=== PATIENT | male | born 1945 | race Caucasian/White ===

== ENCOUNTER 2018-07-29 11:25 | Outpatient (REF) | payer MEDICARE, MEDICAID, SELFPAY ==
[2018-07-29 11:45] LABS: Bilirubin Negative (Negative); Blood Negative (Negative); Clarity Clear; Glucose Negative (Negative); Ketones 15 mg/dL (Negative); Leukocyte Esterase Negative (Negative); Nitrite Negative (Negative); Specific Gravity >= 1.030 (1.005-1.025); Urobilinogen 0.2 EU/dL (Up TO 0.2); pH 5.5 (5-8)
== END 2018-07-29 11:26 ==
LOC: LBN 11:25
PROVIDERS: PCP Family Medicine; Visit Provider Family Medicine
DX: N39.0 Urinary tract infection, site not specified (principal); R26.9 Unspecified abnormalities of gait and mobility; G20 Parkinson's disease
CPT/HCPCS: 81003

== ENCOUNTER → 2018-08-06 08:14 | Outpatient (BNVA) | payer MEDICARE, MEDICAID, SELFPAY | PROVIDERS: PCP Family Medicine; Visit Provider Psychiatry & Neurology Neurology | DX: G20 Parkinson's disease (principal); R29.6 Repeated falls | CPT/HCPCS: 99214 ==

== ENCOUNTER → 2018-09-09 09:13 | Outpatient (BNVA) | payer MEDICARE, MEDICAID, SELFPAY | PROVIDERS: Visit Provider Psychiatry & Neurology Neurology | DX: G20 Parkinson's disease (principal); R29.6 Repeated falls | CPT/HCPCS: 99214 ==

== ENCOUNTER 2019-01-08 11:47 | Outpatient (REF) | payer MEDICARE, MEDICAID, SELFPAY ==
[2019-01-08 12:55] LABS: Abs Immature Grans 0.01 k/cumm (0.0-0.09); HCT 38.3 % (40.0-50.0); HGB 12.7 g/dL (13.5-17.5); Mean Corp. HGB Concentration 33.2 g/dL (32.0-36.0); Mean Corpuscular Volume 93.4 fL (80-95); Mean Platelet Volume 11.8 fL (8.0-11.0); RBC Distribution Width 12.9 % (11.8-14.1); White Blood Cell Count 2.72 k/cumm (4.4-10.8)
[2019-01-08 13:35] LABS: Absolute Eosinophil Count 0.08 k/cumm (0.0-0.7); Absolute Lymphocyte Count 0.84 k/cumm (1.2-3.4); Absolute Monocyte Count 0.63 k/cumm (0.11-0.7); Absolute Neutrophil Count 1.14 k/cumm (1.2-6.7); Atypical Lymphocytes % 3
[2019-01-08 13:36] LABS: Diff Comment Manual Differential; Platelet Count 116 x1000/uL (130-400); RBC Morphology Normal
[2019-01-08 14:02] LABS: ALT 15 U/L (12-78); AST 27 U/L (15-37); Albumin 3.1 g/dL (3.4-5.0); Alkaline Phosphatase 69 U/L (46-116); Anion Gap 7.8 mmol/L (3-11); BUN 22 mg/dL (7-18); Bilirubin, Total 0.3 mg/dL (0.2-1.0); CO2 28.2 mmol/L (21.0-32.0); CREATININE 1.26 mg/dL (0.70-1.30); Chloride 108 mmol/L (98-107); Estimated GFR 56.26 (mL/min/1.73m2); Glucose 92 mg/dL (70-100); Sodium 144 mmol/L (136-145); TSH (W/Ref FT4) 0.68 uIU/mL (0.358-3.74); Total Protein 5.6 g/dL (6.4-8.2); Vitamin B12 436 pg/mL (193-986)
== END 2019-01-08 12:07 ==
LOC: LBN 11:47
PROVIDERS: PCP Family Medicine; Visit Provider Family Medicine
DX: I10 Essential (primary) hypertension (principal); R53.83 Other fatigue; R63.5 Abnormal weight gain
CPT/HCPCS: 80053; 82607; 84443; 85025

== ENCOUNTER 2019-02-15 11:42 | Emergency (ER) | payer MEDICARE, MEDICAID, SELFPAY ==
[2019-02-15] VITALS (27 sets, daily range): BP systolic 132–168; BP diastolic 62–82; PULSE 65–78; RESP 9–26; TEMP 36.3; O2SAT 95–98
--- NOTE | 2019-02-15 12:05 | ED.GENADUL_ITS ---
Discharge Plan Disposition Patient Disposition: [facility] Condition: Stable Discharge Details Chief Complaint: Trauma Clinical Impression: Fall, Hip pain Reason For Visit: STEVE Primary Care Provider: Rich Solis ED Provider: Leticia Mae Home Meds and New Rx's Prescriptions: Continued carbidopa-levodopa 25-100 mg tablet 2 tab PO .4XDAY RF: 0 carbidopa-levodopa 50-200 mg tablet extended release 1 tab PO QID RF: 0 trazodone 50 mg tablet 50 mg PO DIRECTED Qty: 1 RF: 0 sertraline 50 mg tablet 75 mg PO DAILY RF: 0 amantadine HCl 100 mg capsule 100 mg PO BID Qty: 60 RF: 0 multivitamin [Daily Multiple] 1 EACH tablet 1 ea PO DAILY RF: 0 cholecalciferol (vitamin D3) 10,000 UNIT capsule 50,000 unit PO Friday RF: 0 polyvinyl alcohol [Artificial Tears (polyvin alc)] 15 ML drops 1 drp OU Q1H PRN PRNRF: 0 quetiapine 25 mg Tablet 12.5 mg PO .QEVE RF: 0 Discharge Instructions Instructions: Contusion in Adults (ED), Hip Pain (ED) Additional Instructions: Please return to the emergency department if you develop any new or worsening symptoms or if you become otherwise concerned. It is extremely important that you make an appointment to be seen as soon as possible in follow-up this visit by your primary care doctor. Referrals: Rich Solis [Primary Care Provider] - Discharge Data Discharge Date/Time-TO BE ENTERED AT DEPARTURE: 02/15/19 15:53 Medical Decision Making Evelio Angel is a 73-year-old male with a history of Parkinson's disease, frequent falls, anxiety who presented to the emergency department with bilateral hip pain after standing from his wheelchair and falling forward, hitting his head. On exam patient has garbled speech, which is confirmed is at baseline by a caregiver present in the exam room in the nose and well. His neurologic exam is nonfocal. He is tender in both hips, worse on the left. Both lower extremities are neurovascularly intact. There is some difficulty with communica tion due to to garbled speech, underlying mental status that his caregiver reports as at baseline. Concern for possible intracranial, C-spine trauma, as well as trauma to the hips. Exam/history is not consistent with non-mechanical fall, sepsis, other acute emergent life-threatening process. Plan for CT head, C-spine, x-rays bilateral hips. Imaging nondiagnostic. I had a lengthy discussion with the patient and his caregiver regarding return to emergency department precautions. Patient was discharged with clear plan for outpatient follow-up. Caregiver and patient verbalized understanding the plan and are amenable. All questions were answered. Medical Records Medical records reviewed: Yes I reviewed the patient's medical records. Imaging Data Radiologic Study: Attestation: I personally reviewed and interpreted this imaging study as follows: Radiologist's impression: PELVIS AND BILATERAL HIPS: Multiple views. No acute fracture or dislocation is identified. The soft tissues are unremarkable. IMPRESSION: No acute abnormality. CT BRAIN: Noncontrast examination was performed. Comparison 03/17/11. The ventricles and sulci are consistent with the patient's age. There are areas of decreased attenuation in the white matter consistent with small vessel ischemic disease. No intracranial hemorrhage, infarct, acute midline shift or mass effect is identified. The ventricles are intact. The basilar cisterns are patent. The visualized paranasal sinuses are clear. The mastoid air cells are well pneumatized. The calvarium is intact. IMPRESSION: No acute intracranial process. CT SCAN OF THE CERVICAL SPINE: Multiple contiguous axial images of the cervical spine were obtained. Sagittal and coronal reformatted images were evaluated on the Siemens workstation. The odontoid is intact. The lateral masses are well aligned. There is normal alignment of the cervical spine. No acute fractures or subluxations are seen. Mild to moderate degenerative changes are present in the cervical spine. The soft tissues are unremarkable. The lung apices are clear. IMPRESSION: No acute fracture or subluxation in the cervical spine. HPI General Mode of arrival: EMS . Date/Time Provider Initiated Documentation: 02/15/19 12:04 . Limitations to Documentation: no limitations . Information obtained by: patient, RN notes reviewed and old records reviewed . HPI Narrative: Evelio Angel is a 73-year-old man with a history of Parkinson's disease, frequent falls, and anxiety who presents emergency department with fall. Per EMS, correction report, and Pt, patient was seated in his wheelchair when he went to stand and fell forward hitting his head on a table. Patient reports this happens frequently as does correction. Patient reports that he has had pain in both hips since the fall. He did not lose consciousness. He has had no vomiting. Patient reports mild headache along with bilateral hip pain, worse on the left. He denies any other pain. He d enies having any symptoms prior to the fall, per nursing report he was previously in his usual state of health. Has been eating and drinking as usual. Related Data Home Medications Medication Instructions Recorded Confirmed cholecalciferol (vitamin D3) 50,000 unit PO Friday08/08/15 02/15/19 multivitamin [Daily Multiple] 1 ea PO DAILY 08/08/15 02/15/19 polyvinyl alcohol [Artificial 1 drp OU Q1H PRN PRN 04/20/17 02/15/19 Tears (polyvin alc)] amantadine HCl 100 mg capsule 100 mg PO BID #60 cap 08/06/18 02/15/19 sertraline 50 mg tablet 75 mg PO DAILY tab 08/06/18 02/15/19 carbidopa 25 mg-levodopa 100 mg 2 tab PO .4XDAY tab 09/09/18 02/15/19 tablet carbidopa ER 50 mg-levodopa 200 mg 1 tab PO QID tab 09/09/18 02/15/19 tablet,extended release trazodone 50 mg tablet 50 mg PO DIRECTED #1 tab 09/09/18 02/15/19 quetiapine 12.5 mg PO .QEVE 02/15/19 02/15/19 Previous Rx's Medication Instructions Recorded amantadine HCl 100 mg capsule 100 mg PO BID #60 cap 08/06/18 trazodone 50 mg tablet 50 mg PO DIRECTED #1 tab 09/09/18 Allergies Allergy/AdvReac Type Severity Reaction Status Date / Time Penicillins Allergy Mild can't Unverified 02/15/19 12:18 remember Sulfa (Sulfonamide Allergy Unverified 02/15/19 12:18 Antibiotics) General Stated Complaint: Trauma MARIBELL: 3 Review of Systems Review of Systems Constitutional: denies fevers Eyes: denies eye pain ENT: denies facial pain, dental pain, sore throat Cardiovascular: denies chest pain, edema Respiratory: denies SOB, cough GI: denies abdominal pain, vomiting, diarrhea : denies flank pain MSK: denies back pain, neck pain, myalgias, reports bilateral hip pain Skin: denies rash Neuro: denies new numbness, weakness, reports mild headache [facility] Medical History Colitis (Chronic) Parkinsons disease (Chronic 06/10/15) Falls frequently (Chronic 06/10/15) Anxiety (Chronic) Depression (Chronic) Arthritis (Chronic) Social History Smoking/Tobacco Use Status: Never Drug use: Never Substance use type: does not use Do you feel safe in your relationship?: Yes Additional Social history: 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 He resides at the [facility]. Friend Rosa is a his DPOA and finance advisor. No smoking, ETOH, or illicit drug use. Exam Narrative Exam Narrative: Constitutional: well and [id number], pleasant, garbled speech that is at baseline HENT: head atraumatic/normocephalic/normal inspection, mucous membranes moist Eyes: conjunctiva normal, sclera normal, pupils 3mm b/l Neck: no stridor, normal ROM, trachea midline, no C-spine tenderness palpation Chest: normal inspection Resp: normal work of breathing, LCTAB Cardio: normal rate, normal rhythm, no murmur appreciated GI: abdomen soft, non-tender, non-distended Back: normal inspection, no rash Skin: warm, dry, normal color, no rash Neuro: alert, not altered, grossly non-focal, normal tone Ext: no edema, bilateral hips tender to anterior and lateral palpation, able to range right hip normally, pain with ranging left hip. DP pulses intact and symmetric. No posterior calf tenderness. No tenderness bilateral thighs, knees, lower legs, ankles. No skin signs of trauma to the lower extremities Psych: normal mood, normal affect Course Vital Signs Temperature 36.3 C L 02/15/19 11:53 Pulse 65 02/15/19 11:53 Blood Pressure 136/75 02/15/19 11:53 Pulse Oximetry 95 02/15/19 11:53 Temperature 36.3 C L 02/15/19 11:53 Pulse 65 02/15/19 11:53 Blood Pressure 136/75 02/15/19 11:53 Blood Pressure Position Supine 02/15/19 11:53 Pulse Oximetry 95 02/15/19 11:53 Oxygen Delivery Method Room Air 02/15/19 11:53 Oxygen Flow Rate 0 02/15/19 11:53
--- NOTE | 2019-02-15 12:38 | DI.CT_ITS ---
SYMPTOMS/DIAGNOSIS: TRAUMA, BASELINE AMS CT BRAIN: Noncontrast examination was performed. Comparison 03/17/11. The ventricles and sulci are consistent with the patient's age. There are areas of decreased attenuation in the white matter consistent with small vessel ischemic disease. No intracranial hemorrhage, infarct, acute midline shift or mass effect is identified. The ventricles are intact. The basilar cisterns are patent. The visualized paranasal sinuses are clear. The mastoid air cells are well pneumatized. The calvarium is intact. IMPRESSION: No acute intracranial process. CT SCAN OF THE CERVICAL SPINE: Multiple contiguous axial images of the cervical spine were obtained. Sagittal and coronal reformatted images were evaluated on the Siemens workstation. The odontoid is intact. The lateral masses are well aligned. There is normal alignment of the cervical spine. No acute fractures or subluxations are seen. Mild to moderate degenerative changes are present in the cervical spine. The soft tissues are unremarkable. The lung apices are clear. IMPRESSION: No acute fracture or subluxation in the cervical spine. The findings were discussed with the emergency department on the date of the examination.
--- NOTE | 2019-02-15 14:01 | DI.RAD_ITS ---
SYMPTOMS/DIAGNOSIS: TRAUMA, BILATERAL HIP PAIN PELVIS AND BILATERAL HIPS: Multiple views. No acute fracture or dislocation is identified. The soft tissues are unremarkable. IMPRESSION: No acute abnormality.
== END 2019-02-15 15:53 | disposition designated cancer center or children's hospital (05) ==
PROVIDERS: Emergency Provider Student in an Organized Health Care Education/Training Program; PCP Family Medicine
DX: S09.90XA Unspecified injury of head, initial encounter (principal); M25.551 Pain in right hip; M25.552 Pain in left hip; W05.0XXA Fall from non-moving wheelchair, initial encounter; R29.6 Repeated falls; G20 Parkinson's disease
CPT/HCPCS: 73521; 99284; 70450; 72125; 99282

== ENCOUNTER 2019-06-05 11:34 | Emergency (ER) | payer MEDICARE, MEDICAID, SELFPAY ==
[2019-06-05] VITALS (7 sets, daily range): BP systolic 98; BP diastolic 65; PULSE 16–73; RESP 9–21; TEMP 36.6; O2SAT 98–99
--- NOTE | 2019-06-05 11:42 | W.ED.GENAD ---
Discharge Plan Disposition Patient Disposition: SNF (LEVEL 1) [facility] Condition: Serious Discharge Details Chief Complaint: Trauma Clinical Impression: Face lacerations, Subdural bleeding Primary Care Provider: Rich Solis ED Provider: Gwendolyn Jones [place] Meds and New Rx's Prescriptions: Continued carbidopa-levodopa 25-100 mg tablet 2 tab PO .4XDAY RF: 0 carbidopa-levodopa 50-200 mg tablet extended release 1 tab PO QID RF: 0 trazodone 50 mg tablet 50 mg PO DIRECTED Qty: 1 RF: 0 sertraline 50 mg tablet 75 mg PO DAILY RF: 0 amantadine HCl 100 mg capsule 100 mg PO BID Qty: 60 RF: 0 multivitamin [Daily Multiple] 1 EACH tablet 1 ea PO DAILY RF: 0 cholecalciferol (vitamin D3) 10,000 UNIT capsule 50,000 unit PO Friday RF: 0 polyvinyl alcohol [Artificial Tears (polyvin alc)] 15 ML drops 1 drp OU Q1H PRN PRNRF: 0 quetiapine 25 mg Tablet 12.5 mg PO .QEVE RF: 0 Discharge Instructions Instructions: Subdural Hematoma (ED), Facial Laceration (ED) Additional Instructions: Evelio has 3 areas of bleeding in his brain noted today on CT likely from his fall this morning. This is a serious issue, following patients wishes with COLST form, will not pursue further intervention. May return at any point for further care. Laceration closed with adhesive. Monitor for signs of infection including redness, warmth, drainage, increased pain, fevers/chills. Please see primary care physician as soon as possible. Referrals: Rich Solis [Primary Care Provider] - Discharge Data Discharge Date/Time-TO BE ENTERED AT DEPARTURE: 06/05/19 14:42 Medical Decision Making Patient is a 73-year-old male, brought in via EMS, after falling out of bed. Patient resides at the [facility]. Unwitnessed fall. Has 3cm laceration lateral to left eyebrow. Patient is reported to have limited communicative skills at baseline, unchanged from baseline per nursing report. Unable to obtain history from the patient. Plan to image the patient's head and clean and repair the wound. Patient is not anticoagulated. Contacted by radiologist who advised that there is 3 very small bleeds including a small subdural. They do not know any edema or midline shift. I did review the patient's pulse form and the patient is a DNR expressing wishes to not be transferred to other facilities. Will attempt to reach the patient's DPOA to discuss these findings and discuss patients wishes for continued care. Plan to treat laceration with adhesive. Unable to reach DPOA at number listed, called [facility] with hopes they are able to contact them. Was able to speak with patients DPOA, Rosey, who advises that his wishes would be to have no further intervention Was able to speak wi9th Dr. 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 At this time, we will follow the patients wishes, treat wound and send back to his residence. Patient is now more communicitive. We discussed bleeds although I have reservations about how much of this he understood. He is able to say that he wants to go home. Procedure note: Wound copiously irrigated, explored to base in bloodless field. No FB or debris noted. No deep structures involved. The tissue is easily mobile and good candidate for adhesive closure, particularly with the patients mental status. Thin layer of adhesive applied. Maria D tolerated this well. Transferred patient back to [facility]. They will seek care if signs of infection arise. He will be evaluated this week by Dr. Blilings. HPI General Mode of arrival: EMS. Date/Time Provider Initiated Documentation: 06/05/19 11:42. Limitations to Documentation: altered mental status. Information obtained by: EMS and RN notes reviewed. History of Present Illness 73 year old M presents to the emergency department with the chief complaint of head trauma, laceration lateral to left eyebrow, described as mild (does not appear to be in any pain, did not express this to EMS), and is localized to the head. Patient started experiencing this minute(s) Patient notes no other symptoms. (unable to obtain secondary to patients baseline mentation). Patient did receive the following treatments prior to arrival, none Related Data Home Medications Medication Instructions Recorded Confirmed cholecalciferol (vitamin D3) 50,000 unit PO Friday08/08/15 02/15/19 multivitamin [Daily Multiple] 1 ea PO DAILY 08/08/15 02/15/19 polyvinyl alcohol [Artificial 1 drp OU Q1H PRN PRN 04/20/17 02/15/19 Tears (polyvin alc)] amantadine HCl 100 mg capsule 100 mg PO BID #60 cap 08/06/18 02/15/19 sertraline 50 mg tablet 75 mg PO DAILY tab 08/06/18 02/15/19 carbidopa 25 mg-levodopa 100 mg 2 tab PO .4XDAY tab 09/09/18 02/15/19 tablet carbidopa ER 50 mg-levodopa 200 mg 1 tab PO QID tab 09/09/18 02/15/19 tablet,extended release trazodone 50 mg tablet 50 mg PO DIRECTED #1 tab 09/09/18 02/15/19 quetiapine 12.5 mg PO .QEVE 02/15/19 02/15/19 Previous Rx's Medication Instructions Recorded amantadine HCl 100 mg capsule 100 mg PO BID #60 cap 08/06/18 trazodone 50 mg tablet 50 mg PO DIRECTED #1 tab 09/09/18 Allergies Allergy/AdvReac Type Severity Reaction Status Date / Time Penicillins Allergy Mild can't Unverified 02/15/19 12:18 remember Sulfa (Sulfonamide Allergy Unverified 02/15/19 12:18 Antibiotics) General MARIBELL: 3 Review of Systems Review of Systems Unobtainable due to mental condition (dementia, at baseline per shelter) [facility] Medical History Colitis (Chronic) Parkinsons disease (Chronic 06/10/15) Falls frequently (Chronic 06/10/15) Anxiety (Chronic) Depression (Chronic) Arthritis (Chronic) Surgical History History of Surgical Procedure (Chronic) Social History Smoking/Tobacco Use Status: Never Drug use: Never Substance use type: does not use Do you feel safe in your relationship?: Yes Additional Social history: 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 He resides at the [facility]. Friend Rosa is a his DPOA and manager agriculture. No smoking, ETOH, or illicit drug use. Exam Const General: cooperative, healthy appearing, comfortable, no acute distress, well developed and well groomed Nutritional Appearance: average body habitus and well nourished Orientation: alert, awake and oriented x3 [facility] Head: normal to inspection, no palpable skull fracture, normocephalic and atraumatic Ears: hearing grossly normal bilaterally, external ears normal and TM's normal bilaterally General nose exam: external nose normal Face and sinus: abnormal facial exam (laceration lateral to left eyebrow) Face images: 1. 3cm laceration, deep structures intact, no active bleeding Mouth: oral mucosae normal, lip normal and tongue normal Throat: posterior oropharynx normal Eyes General: appearance normal, both eyes and all related structures Visual Godinez: normal visual godinez by confrontation Alignment and Position: alignment normal Periorbital: periorbital findings normal Eyelids: eyelids normal Conjunctivae: conjunctivae normal Pupils: PERRL EOM: EOM intact bilaterally Neck Neck: normal visual inspection, full ROM, no lymphadenopathy, no meningeal signs, trachea midline and supple Chest Chest: normal inspection of the chest, normal palpation of entire chest wall, no crepitus and no localized rib tenderness Resp Effort & Inspection: normal respiratory effort, able to speak in complete sentences and no respiratory distress Auscultation: clear to auscultation bilaterally, no rales, no rhonchi and no wheezes Cardio Rate: regular rate Rhythm: regular rhythm Heart Sounds: S1 normal and S2 normal GI Inspection: normal to inspection, no abdominal wall ecchymosis, no edema and non-distended Palpation: soft, no hepatosplenomegaly, not firm, no guarding, no pulsatile masses, not rigid and nontender Auscultation: normal bowel sounds Back/Spine/Pelvis Back: no CVA tenderness Cervical Spine: normal cervical lordosis and cervical ROM normal Thoracic/Lumbar Spine: thoracic and lumbar spine normal to inspection, thoraco-lumbar ROM normal, No thoraco-lumbar ROM limited, No thoraco-lumbar spasm and No thoracic spinal tenderness Pelvis: no pain with anterior-posterior compression and no pain with lateral compression Skin Trauma: laceration (as above) Neuro General: alert, awake, not oriented x3, tone normal and moves all extremities Cranial Nerves: CN's II-XI intact bilaterally Motor: muscle tone normal throughout and strength 5/5 throughout Extrem General: normal to inspection, full ROM, normal capillary refill, no pedal edema and no calf tenderness Psych Appearance: grossly normal and well kempt Speech and Movement: mute
--- NOTE | 2019-06-05 12:12 | NUR.NOTE ---
Nursing Note: pt in CT scan
--- NOTE | 2019-06-05 12:24 | DI.CT_ITS ---
SYMPTOM/DIAGNOSIS: UNWITNESSED FALL CERVICAL SPINE CT: 06/05 CT examination of the cervical spine was performed utilizing multi-slice acquisition, multiplanar reconstruction. There is torticollis to the right. There are marked degenerative changes throughout the cervical spine. There is no evidence of acute fracture or facet dislocation. No cervical mass or adenopathy seen. Visualized lung apices are clear. Tracheolaryngeal structures appear intact. CONCLUSION: No evidence of acute cervical fracture. CRANIAL CT : 06/[address] was performed. No calvarial fracture identified. The orbital and temporal bone structures appear intact and visualized paranasal sinuses are well aerated. There is marked generalized cerebral atrophy. There is a small focal area of subarachnoid hemorrhage vs medial left frontal lobe hemorrhagic contusion. Tiny subdural hematoma noted in the posterior falx. Question tiny hemorrhage in midline falx or wall of right lateral ventricle. No midline shift. No additional intracranial injury seen. CONCLUSION: Tiny falx/para falx seen hemorrhages, left medial frontal lobe contusion and/or subarachnoid collection.
--- NOTE | 2019-06-05 13:07 | NUR.NOTE ---
Nursing Note: Wound cleansed and irrigated with normal saline, pt tolerated well.
--- NOTE | 2019-06-05 13:16 | ED.GENADUL_ITS ---
Discharge Plan Disposition Patient Disposition: SNF (LEVEL 1) [facility] Condition: Serious Discharge Details Chief Complaint: Trauma Clinical Impression: Face lacerations, Subdural bleeding Primary Care Provider: Rich Solis ED Provider: Gwendolyn Jones [place] Meds and New Rx's Prescriptions: Continued carbidopa-levodopa 25-100 mg tablet 2 tab PO .4XDAY RF: 0 carbidopa-levodopa 50-200 mg tablet extended release 1 tab PO QID RF: 0 trazodone 50 mg tablet 50 mg PO DIRECTED Qty: 1 RF: 0 sertraline 50 mg tablet 75 mg PO DAILY RF: 0 amantadine HCl 100 mg capsule 100 mg PO BID Qty: 60 RF: 0 multivitamin [Daily Multiple] 1 EACH tablet 1 ea PO DAILY RF: 0 cholecalciferol (vitamin D3) 10,000 UNIT capsule 50,000 unit PO Friday RF: 0 polyvinyl alcohol [Artificial Tears (polyvin alc)] 15 ML drops 1 drp OU Q1H PRN PRNRF: 0 quetiapine 25 mg Tablet 12.5 mg PO .QEVE RF: 0 Discharge Instructions Instructions: Subdural Hematoma (ED), Facial Laceration (ED) Additional Instructions: Evelio has 3 areas of bleeding in his brain noted today on CT likely from his fall this morning. This is a serious issue, following patients wishes with COLST form, will not pursue further intervention. May return at any point for further care. Laceration closed with adhesive. Monitor for signs of infection including redness, warmth, drainage, increased pain, fevers/chills. Please see primary care physician as soon as possible. Referrals: iRch Solis [Primary Care Provider] - Discharge Data Discharge Date/Time-TO BE ENTERED AT DEPARTURE: 06/05/19 14:42 Medical Decision Making Patient is a 73-year-old male, brought in via EMS, after falling out of bed. Patient resides at the [facility]. Unwitnessed fall. Has 3cm laceration lateral to left eyebrow. Patient is reported to have limited communicative skills at baseline, unchanged from baseline per nursing report. Unable to obtain history from the patient. Plan to image the patient's head and clean and repair the wound. Patient is not anticoagulated. Contacted by radiologist who advised that there is 3 very small bleeds including a small subdural. They do not know any edema or midline shift. I did review the patient's pulse form and the patient is a DNR expressing wishes to not be transferred to other facilities. Will attempt to reach the patient's DPOA to discuss these findings and discuss patients wishes for continued care. Plan to treat laceration with adhesive. Unable to reach DPOA at number listed, called [facility] with hopes they are able to contact them. Was able to speak with patients DPOA, Rosey, who advises that his wishes would be to have no further intervention Was able to speak wi9th Dr. 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 At this time, we will follow the patients wishes, treat wound and send back to his residence. Patient is now more communicitive. We discussed bleeds although I have reservations about how much of this he understood. He is able to say that he wants to go home. Procedure note: Wound copiously irrigated, explored to base in bloodless field. No FB or debris noted. No deep structures involved. The tissue is easily mobile and good candidate for adhesive closure, particularly with the patients mental status. Thin layer of adhesive applied. Maria D tolerated this well. Transferred patient back to [facility]. They will seek care if signs of infection arise. He will be evaluated this week by Dr. Billings. HPI General Mode of arrival: EMS . Date/Time Provider Initiated Documentation: 06/05/19 11:42 . Limitations to Documentation: altered mental status . Information obtained by: EMS and RN notes reviewed . History of Present Illness 73 year old M presents to the emergency department with the chief complaint of head trauma, laceration lateral to left eyebrow, described as mild (does not appear to be in any pain, did not express this to EMS), and is localized to the head. Patient started experiencing this minute(s) Patient notes no other symptoms. (unable to obtain secondary to patients baseline mentation). Patient did receive the following treatments prior to arrival, none Related Data Home Medications Medication Instructions Recorded Confirmed cholecalciferol (vitamin D3) 50,000 unit PO Friday08/08/15 02/15/19 multivitamin [Daily Multiple] 1 ea PO DAILY 08/08/15 02/15/19 polyvinyl alcohol [Artificial 1 drp OU Q1H PRN PRN 04/20/17 02/15/19 Tears (polyvin alc)] amantadine HCl 100 mg capsule 100 mg PO BID #60 cap 08/06/18 02/15/19 sertraline 50 mg tablet 75 mg PO DAILY tab 08/06/18 02/15/19 carbidopa 25 mg-levodopa 100 mg 2 tab PO .4XDAY tab 09/09/18 02/15/19 tablet carbidopa ER 50 mg-levodopa 200 mg 1 tab PO QID tab 09/09/18 02/15/19 tablet,extended release trazodone 50 mg tablet 50 mg PO DIRECTED #1 tab 09/09/18 02/15/19 quetiapine 12.5 mg PO .QEVE 02/15/19 02/15/19 Previous Rx's Medication Instructions Recorded amantadine HCl 100 mg capsule 100 mg PO BID #60 cap 08/06/18 trazodone 50 mg tablet 50 mg PO DIRECTED #1 tab 09/09/18 Allergies Allergy/AdvReac Type Severity Reaction Status Date / Time Penicillins Allergy Mild can't Unverified 02/15/19 12:18 remember Sulfa (Sulfonamide Allergy Unverified 02/15/19 12:18 Antibiotics) General MARIBELL: 3 Review of Systems Review of Systems Unobtainable due to mental condition (dementia, at baseline per fdc) [facility] Medical History Colitis (Chronic) Parkinsons disease (Chronic 06/10/15) Falls frequently (Chronic 06/10/15) Anxiety (Chronic) Depression (Chronic) Arthritis (Chronic) Surgical History History of Surgical Procedure (Chronic) Social History Smoking/Tobacco Use Status: Never Drug use: Never Substance use type: does not use Do you feel safe in your relationship?: Yes Additional Social history: 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 He resides at the [facility]. Friend Rosa is a his DPOA and director of finance. No smoking, ETOH, or illicit drug use. Exam Const General: cooperative, healthy appearing, comfortable, no acute distress, well developed and well groomed Nutritional Appearance: average body habitus and well nourished Orientation: alert, awake and oriented x3 [facility] Head: normal to inspection, no palpable skull fracture, normocephalic and atraumatic Ears: hearing grossly normal bilaterally, external ears normal and TM's normal bilaterally General nose exam: external nose normal Face and sinus: abnormal facial exam (laceration lateral to left eyebrow) Face images: 1. 3cm laceration, deep structures intact, no active bleeding Mouth: oral mucosae normal, lip normal and tongue normal Throat: posterior oropharynx normal Eyes General: appearance normal, both eyes and all related structures Visual Godinez: normal visual godinez by confrontation Alignment and Position: alignment normal Periorbital: periorbital findings normal Eyelids: eyelids normal Conjunctivae: conjunctivae normal Pupils: PERRL EOM: EOM intact bilaterally Neck Neck: normal visual inspection, full ROM, no lymphadenopathy, no meningeal signs, trachea midline and supple Chest Chest: normal inspection of the chest, normal palpation of entire chest wall, no crepitus and no localized rib tenderness Resp Effort & Inspection: normal respiratory effort, able to speak in complete sentences and no respiratory distress Auscultation: clear to auscultation bilaterally, no rales, no rhonchi and no wheezes Cardio Rate: regular rate Rhythm: regular rhythm Heart Sounds: S1 normal and S2 normal GI Inspection: normal to inspection, no abdominal wall ecchymosis, no edema and non-distended Palpation: soft, no hepatosplenomegaly, not firm, no guarding, no pulsatile masses, not rigid and nontender Auscultation: normal bowel sounds Back/Spine/Pelvis Back: no CVA tenderness Cervical Spine: normal cervical lordosis and cervical ROM normal Thoracic/Lumbar Spine: thoracic and lumbar spine normal to inspection, thoraco- lumbar ROM normal, No thoraco-lumbar ROM limited, No thoraco-lumbar spasm and No thoracic spinal tenderness Pelvis: no pain with anterior-posterior compression and no pain with lateral compression Skin Trauma: laceration (as above) Neuro General: alert, awake, not oriented x3, tone normal and moves all extremities Cranial Nerves: CN's II-XI intact bilaterally Motor: muscle tone normal throughout and strength 5/5 throughout Extrem General: normal to inspection, full ROM, normal capillary refill, no pedal edema and no calf tenderness Psych Appearance: grossly normal and well kempt Speech and Movement: mute
--- NOTE | 2019-06-05 13:21 | DI.VRAD_ITS ---
EXAM: CT Head Without Contrast EXAM DATE/TIME: 06/05/2019 11:43 AM CLINICAL HISTORY: 73 years old, male; Injury or trauma; Initial encounter; Abrasion; Not specified; Injury details: Laceration to left eyebrow. ; Patient HX: Unwitnessed fall. TECHNIQUE: Imaging protocol: Axial computed tomography images of the head without contrast. Coronal and sagittal reformatted images were created and reviewed. Radiation optimization: All CT scans at this facility use at least one of these dose optimization techniques: automated exposure control; mA and/or kV adjustment per patient size (includes targeted exams where dose is matched to clinical indication); or iterative reconstruction. COMPARISON: CT HEAD CERVICAL SPINE WO 02/15/2019 1:23 PM FINDINGS: Brain: There is a small subarachnoid hemorrhage in the paramedian left frontal lobe (image 32 through 35 of series 3). There is 2 mm hemorrhage in the midline falx or in the wall of the right lateral ventricle (image 32 of series 3, image 15 series 8). There is a small subdural hematoma in the posterior falx which appears to be within the left subdural space. This measures approximately 3 mm maximum depth (36/3, 69/8). There is no mass effect.No cerebral edema. No midline shift.There is moderate diffuse cerebral atrophy present, consistent with this patient's age.there is cerebellar atrophy. There is mild diffuse heterogeneity of the white matter attenuation, this change is nonspecific but is likely secondary to chronic ischemia within microvascular distributions. Ventricles: See Brain Finding. Bones/joints: No calvarial fracture. Sinuses: Visualized sinuses are unremarkable. No fluid levels. Mastoid air cells: Visualized mastoid air cells are well aerated. No mastoid effusion. Soft tissues: Unremarkable. IMPRESSION: 1. Small left frontal subarachnoid hemorrhage, small subdural hematoma in the left posterior falx, tiny hemorrhage in the midline falx or wall of the right lateral ventricle. This is not associated with edema or mass effect. No calvarial fracture. 2. Atrophy and deep white matter disease. Remainder of non-emergent findings as described above. THIS REPORT CONTAINS FINDINGS THAT MAY BE CRITICAL TO PATIENT CARE. The findings were verbally communicated via telephone conference with NICKO Jones 06/05/2019 1:14 PM EDT. The findings were acknowledged and understood. EXAM: CT Cervical Spine Without Contrast EXAM DATE/TIME: 06/05/2019 11:43 AM CLINICAL HISTORY: 73 years old, male; Injury or trauma; Initial encounter; Abrasion; Not specified; Injury details: Laceration to left eyebrow. ; Patient HX: Unwitnessed fall. TECHNIQUE: Imaging protocol: Axial computed tomography images of the cervical spine without contrast. Coronal and sagittal reformatted images were created and reviewed. Radiation optimization: All CT scans at this facility use at least one of these dose optimization techniques: automated exposure control; mA and/or kV adjustment per patient size (includes targeted exams where dose is matched to clinical indication); or iterative reconstruction. COMPARISON: CT HEAD CERVICAL SPINE WO 02/15/2019 1:23 PM FINDINGS: Vertebrae: There is no evidence of acute fracture.There is normal sagittal alignment. The facet joints demonstrate moderate degenerative narrowing and sclerosis. Discs/Spinal canal/Neural foramina: There is mild narrowing of the C4-5 and C5-6 disc spaces with small marginal osteophytes.There is mild central canal narrowing, with an AP canal dimension of 10 mm. There is multilevel neural foramina narrowing secondary to uncovertebral ridging. Soft tissues: The prevertebral soft tissues are normal. Lungs: Lung apices are normal. IMPRESSION: No evidence of acute fracture or dislocation. Remainder of non-emergent findings as described above. Dictated and Authenticated by: Kristy Richardson MD. Ordering:DAVI Snow MD
--- NOTE | 2019-06-05 14:00 | NUR.NOTE ---
Nursing Note: pt resting in bed, no signs of distress, facial expression and body language relaxed. pt states, I want to go home will continue to monitor
== END 2019-06-05 14:42 | disposition skilled nursing facility (03) ==
PROVIDERS: Emergency Provider Physician Assistant; PCP Family Medicine
DX: S06.5X0A Traumatic subdural hemorrhage without loss of consciousness, initial encounter (principal); S01.112A Laceration without foreign body of left eyelid and periocular area, initial encounter; W06.XXXA Fall from bed, initial encounter; G20 Parkinson's disease
CPT/HCPCS: 12013; 99284; 70450; 72125

== ENCOUNTER 2019-11-29 02:35 | Emergency (ER) | payer MEDICARE, MEDICAID, SELFPAY ==
[2019-11-29] MEDS: Normal Saline 1,000 ML 1000 ML IV (02:45)
--- NOTE | 2019-11-29 02:48 | W.ED.GENAD ---
Discharge Plan Disposition Patient Disposition: L[facility] Condition: Good Discharge Details Chief Complaint: GenMedical Clinical Impression: Acute dehydration, Acute UTI Primary Care Provider: Katelyn Billings ED Provider: Garo Rodriguez Home Meds and New Rx's Prescriptions: New cephalexin [Keflex] 500 mg capsule 500 mg PO QID 7 Days Qty: 28 RF: 0 No Action carbidopa-levodopa 25-100 mg tablet 2 tab PO .4XDAY RF: 0 carbidopa-levodopa 50-200 mg tablet extended release 1 tab PO QID RF: 0 trazodone 50 mg tablet 50 mg PO DIRECTED Qty: 1 RF: 0 sertraline 50 mg tablet 75 mg PO DAILY RF: 0 amantadine HCl 100 mg capsule 100 mg PO BID Qty: 60 RF: 0 multivitamin [Daily Multiple] 1 EACH tablet 1 ea PO DAILY RF: 0 cholecalciferol (vitamin D3) 10,000 UNIT capsule 50,000 unit PO Friday RF: 0 polyvinyl alcohol [Artificial Tears (polyvin alc)] 15 ML drops 1 drp OU Q1H PRN PRNRF: 0 quetiapine 25 mg Tablet 12.5 mg PO .QEVE RF: 0 Discharge Instructions Instructions: Dehydration (ED), Urinary Tract Infection in Men (ED) Additional Instructions: At this time the patient has a mild urinary tract infection as well as being mildly dehydrated which likely caused his symptoms. Please give him the Keflex as directed. He tolerated ceftriaxone well here and showed no signs of allergic reaction whatsoever. Please make sure he is drinking 10 to 12 cups of water per day. If you notice any worsening of your symptoms, or any new symptoms such as vomiting, diarrhea, fever, chills, shortness of breath, chest pain, numbness, weakness, or fainting , please return immediately to the emergency department for reevaluation. Please follow up with your primary care provider as soon as possible for reassessment and reevaluation. As always, it was a pleasure participating in your medical care today. Referrals: Katelyn Billings MD, [place] [Primary Care Provider] - Medical Decision Making This is a 74-year-old male with a past medical history of Parkinson's, severe dementia, previous subdural hemorrhage, who resides at the [facility], who is a DNR/DNI limited with order for no transport unless comfort cannot be met at his facility. He presents today for evaluation of combativeness, mild altered mental status. Facility states that he was surrounded by staff earlier this evening secondary to combativeness and confusion for the last 12 to 24 hours. No recent known trauma. Staff contacted EMS, upon their arrival vital signs are stable, urine was noted to be foul-smelling. Accu-Chek was normal. Patient was transferred to [facility] for further evaluation. Exam demonstrates dry mucous membranes. No focal deficits. No signs of significant trauma. While the patient was being assessed on initial triage here by myself and nursing staff he did drop his heart rate to 30, but came back on his own. Pads were placed, however we were later shown his COLST forms which show that he does not want any heroic or intensive care. We will continue to monitor closely, get a CT scan of his head, evaluate for urinary tract infection, and rehydrate. Currently he shows no signs of significant septicemia, trauma or other significant abnormality. Differential is highest for urinary tract infection versus dehydration. 5:[address] scan of the head is negative for acute process per virtual radiology. Chest x-ray also negative. Laboratory work-up demonstrates no white count or bandemia. VBG stable, PCO2 normal. Ammonia level normal. Lactate minimally elevated at 2.2. Patient acting much better, he is calm complacent. Urinalysis does show leuk esterase, negative nitrates, high WBCs and RBCs. However nursing does state that during the Hines catheterization the patient became notably rambunctious, which may have caused some trauma and subsequent RBCs. However with the symptoms signs are concerning for questionable urinary tract infection. 1 g of Rocephin was given, he was observed for greater than 2 hours and he shows no signs of allergic reaction whatsoever. Repeat lactate was drawn and demonstrates a notable resolution with lactate now at 0.8. With an otherwise relatively unremarkable work-up, notable improvement of his symptoms after a 1.5 L bolus of normal saline I feel that his symptoms are clinically consistent with mild dehydration a mild urinary tract infection. This time I do feel that he can be discharged back to his [facility] facility, we will give a prescription for Keflex for home use. I feel that this still does fall within his DNR DNI limited request. I did contact the nurse at the [facility] and discussed the case with her as well as what was performed here. She does understand as well as demonstrates understanding of the plan going forward. Patient will be transferred back to the [facility] by Zach. EKG is 3: 02 Rate 60, CO 156, QTc 446, QRS 102, sinus rhythm, no significant ST elevations or depressions, no Q waves, no evidence of STEMI. FINDINGS: Brain: Mild volume loss. No hemorrhage. Mild white matter disease. No mass effect. Ventricles: Normal. No ventriculomegaly. Bones/joints: Unremarkable. No acute fracture. Sinuses: Mild polypoid mucosal thickening. No fluid levels. Mastoid air cells: Visualized mastoid air cells are well aerated. Soft tissues: Unremarkable. IMPRESSION: No acute intracranial abnormality. Thank you for allowing us to participate in the care of your patient. Dictated and Authenticated by: Michael Ma MD FINDINGS: Lungs: Unremarkable. No consolidation. Pleural space: Unremarkable. No evidence of pneumothorax. Heart/Mediastinum: Unremarkable. Heart size within normal limits for technique. Bones/joints: Unremarkable. IMPRESSION: No acute findings. Thank you for allowing us to participate in the care of your patient. Dictated and Authenticated by: Khang Velarde MD 11/29/2019 3:28 AM Eastern Time ([place] & [place]) HPI General Date/Time Provider Initiated Documentation: 11/29/19 02:49. HPI Narrative: This is a 74-year-old male with a past medical history of Parkinson's, severe dementia, previous subdural hemorrhage, who resides at the [facility], who is a DNR/DNI limited with order for no transport unless comfort cannot be met at his facility. He presents today for evaluation of combativeness, mild altered mental status. Facility states that he was surrounded by staff earlier this evening secondary to combativeness and confusion for the last 12 to 24 hours. No recent known trauma. Staff contacted EMS, upon their arrival vital signs are stable, urine was noted to be foul-smelling. Accu-Chek was normal. Patient was transferred to [facility] for further evaluation. Currently the patient has no complaints, he is a notably poor historian secondary to his chronic mental baseline. No other modifying factors. Related Data Home Medications Medication Instructions Recorded Confirmed cholecalciferol (vitamin D3) 50,000 unit PO Friday08/08/15 02/15/19 multivitamin [Daily Multiple] 1 ea PO DAILY 08/08/15 02/15/19 polyvinyl alcohol [Artificial 1 drp OU Q1H PRN PRN 04/20/17 02/15/19 Tears (polyvin alc)] amantadine HCl 100 mg capsule 100 mg PO BID #60 cap 08/06/18 02/15/19 sertraline 50 mg tablet 75 mg PO DAILY tab 08/06/18 02/15/19 carbidopa 25 mg-levodopa 100 mg 2 tab PO .4XDAY tab 09/09/18 02/15/19 tablet carbidopa ER 50 mg-levodopa 200 mg 1 tab PO QID tab 09/09/18 02/15/19 tablet,extended release trazodone 50 mg tablet 50 mg PO DIRECTED #1 tab 09/09/18 02/15/19 quetiapine 12.5 mg PO .QEVE 02/15/19 02/15/19 cephalexin [Keflex] 500 mg PO QID 7 Days #28 cap 11/29/19 Previous Rx's Medication Instructions Recorded amantadine HCl 100 mg capsule 100 mg PO BID #60 cap 08/06/18 trazodone 50 mg tablet 50 mg PO DIRECTED #1 tab 09/09/18 cephalexin [Keflex] 500 mg PO QID 7 Days #28 cap 11/29/19 Allergies Allergy/AdvReac Type Severity Reaction Status Date / Time Penicillins Allergy Mild can't Unverified 02/15/19 12:18 remember Sulfa (Sulfonamide Allergy Unverified 02/15/19 12:18 Antibiotics) General MARIBELL: 3 Review of Systems All systems reviewed & are unremarkable except as noted in HPI and below [facility] Medical History (Updated 08/06/19 @ 09:53 by Evelio Fernandez MD) Anxiety (Chronic) Arthritis (Chronic) Colitis (Chronic) Depression (Chronic) Falls frequently (Chronic 06/10/15) Parkinsons disease (Chronic 06/10/15) a. diagnosed in 1998 b. followed by Nohemi Dumont MD Subdural hemorrhage (Acute) Surgical History History of Surgical Procedure (Chronic) A. Toe surgery. 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 He resides at the [facility]. Friend Rosa is a his DPOA and movie theater manager. No smoking, ETOH, or illicit drug use. Exam Narrative Exam Narrative: 1.Const: Well-nourished, Well-developed, appearing stated age 2.Eyes: PERRL, no conjunctival injection, and symmetrical lids. 3.ENT: Atraumatic external nose and ears. Dry MM. Neck: Symmetric, trachea midline, No thyromegaly. There is no evidence of raccoon eyes, levine sign, CSF rhinorrhea, mastoid tenderness, cranial crepitus, hemotympanum, exophthalmos, or hyphema. Patient demonstrates intact dentition with no signs of tooth avulsion or fracture, no signs of jaw deformity, no evidence of a LeFort's fracture, with an intact palate, nose and orbital region. There is no evidence of a nasal septal hematoma. No proptosis. Jaw closes symmetrically. Airway is clear. 4.CVS: +S1/S2, No murmurs or gallops. Peripheral pulses 2+ and equal in all extremities. Brisk capillary refill in all extremities. 5.RESP: Unlabored respiratory effort. Clear to auscultation bilaterally. No wheezes rales or rhonchi 6.GI: Soft, Nontender/Nondistended, No hepatosplenomegaly. No guarding or rebound. Genitalia demonstrates a circumcised male, no tenderness, no redness or swelling. No other abnormalities. 7.MSK: Normocephalic/Atraumatic, Extremities w/o deformity or ttp No cyanosis or clubbing, Normal movement of all extremities 8.Skin: Warm, Dry. No rashes or lesions. 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 Sensation grossly intact, no focal neurologic deficits. Patient moves all extremities. 10.Psych: (AAO) x0, pleasant, follows commands. Course Lab/Test Results Lab/Test Results: 11/29/19 02:42 Blood Blood Culture - Pending 11/29/19 02:42 Blood Blood Culture - Pending
[2019-11-29 02:55] VITALS: BP 142/82; PULSE 67; RESP 18; TEMP 37; O2SAT 97
--- NOTE | 2019-11-29 03:05 | NUR.NOTE ---
Pt arrives via rony from the [facility] with c/o agitation, confusion, ?UTI. Per EMS staff stated pt was walking in [address] grabbing at things that weren't there. He lowered himself to the ground and would not respond. On EMS arrival pt responding. they attempted IV, pt pulled out of left wrist. On arrival pt placed on monitor, SR, episode for approx 30sec. with HR to 28, pt not responding. placed on pads. HR back to 60, more responsive. #20 to LAC, labs drawn. Atropine at bedside.
--- NOTE | 2019-11-29 03:07 | DI.RAD_ITS ---
EXAM: XR PORTABLE CHEST AP INDICATION: altered, bradycardia. COMPARISON: PORTABLE AP CHEST from 03/17/2011 TECHNIQUE: 2D digital imaging was performed. FINDINGS: Heart size is within normal limits as is the pulmonary vasculature. Increased lung markings are seen in the left base and an infiltrate cannot be excluded. The right lung is clear. No effusions or pn eumothoraces are identified. Degenerative changes are seen in the spine. IMPRESSION: Question of a left basilar infiltrate. This may represent atelectasis or pneumonia.
[2019-11-29 03:13] LABS: Abs Immature Grans 0.04 k/cumm (0.0-0.09); Absolute Basophil Count 0.02 k/cumm (0.0-0.2); Absolute Eosinophil Count 0.09 k/cumm (0.0-0.7); Absolute Lymphocyte Count 0.98 k/cumm (1.2-3.4); Absolute Monocyte Count 0.72 k/cumm (0.11-0.7); Absolute Neutrophil Count 7.68 k/cumm (1.2-6.7); Basophils % 0.2; Eosinophils % 0.9; HCT 40.1 % (40.0-50.0); HGB 14.3 g/dL (13.5-17.5); Immature Grans % 0.4; Lactate 2.2 mmol/L (0.6-1.4); Lymphocytes % 10.3; Mean Corp. HGB Concentration 35.7 g/dL (32.0-36.0); Mean Corpuscular Hemoglobin 31.8 pg (27.0-33.0); Mean Corpuscular Volume 89.1 fL (80-95); Mean Platelet Volume 10.3 fL (8.0-11.0); Monocytes % 7.6; Neutrophils % 80.6; Platelet Count 190 x1000/uL (130-400); RBC Distribution Width 13.1 % (11.8-14.1); White Blood Cell Count 9.53 k/cumm (4.4-10.8)
[2019-11-29 03:18] LABS: BE (Venous) 0.9 mmol/L (-3-3); HCO3 (Venous) 26 mmol/L (22-28); O2 Sat (Venous) 81 % (70-80); TCO2 (Venous) 23 mmol/L (22-29); pCO2 (Venous) 43 mm/Hg (34-47); pH (Venous) 7.39 (7.32-7.43); pO2 (Venous) 47 mm/Hg (28-44)
[2019-11-29 03:19] VITALS: RESP 14
[2019-11-29 03:19] LABS: INR 1.2 (0.9-1.1); PTT Activated 25.2 sec (21.0-31.4); Prothrombin Time 11.6 sec (9.3-11.0)
--- NOTE | 2019-11-29 03:29 | DI.VRAD_ITS ---
PROCEDURE INFORMATION: Exam: XR Chest, 1 View Exam date and time: 11/29/2019 3:20 AM Age: 74 years old Clinical indication: Other: Bradycardia, altered TECHNIQUE: Imaging protocol: XR of the chest Views: 1 view. COMPARISON: No relevant prior studies available. FINDINGS: Lungs: Unremarkable. No consolidation. Pleural space: Unremarkable. No evidence of pneumothorax. Heart/Mediastinum: Unremarkable. Heart size within normal limits for technique. Bones/joints: Unremarkable. IMPRESSION: No acute findings. Dictated and Authenticated by: Khang Velarde MD. Ordering:LATONYA Wyman MD
[2019-11-29 03:30] VITALS: BP 149/72; PULSE 56; RESP 15; O2SAT 99
--- NOTE | 2019-11-29 04:05 | NUR.NOTE ---
Bladder scan shows aprox 93mL in bladder. additional 500Ml bolus hung per MD [place].
--- NOTE | 2019-11-29 04:14 | DI.CT_ITS ---
EXAM: CT HEAD WO CLINICAL HISTORY: Altered mental status, hx of bleeds TECHNIQUE: The exam was performed according to the usual protocol without contrast. COMPARISON: CT HEAD CERVICAL SPINE WO from 06/05/2019 FINDINGS: Ventricles and sulci are consistent with the patient's age. There are areas of decreased attenuation in the white matter consistent with small vessel ischemic disease. The ventricles are intact. The b asilar cisterns are patent. No acute intracranial hemorrhage, midline shift or mass effect is presen t. Calvarium is intact. IMPRESSION: No acute process.
[2019-11-29 04:21] LABS: ALT 6 U/L (16-63); AST 18 U/L (15-37); Albumin 3.4 g/dL (3.4-5.0); Alkaline Phosphatase 81 U/L (46-116); Anion Gap 12.2 mmol/L (3-11); BUN 26 mg/dL (7-18); Bilirubin, Total 0.8 mg/dL (0.2-1.0); CO2 25.8 mmol/L (21.0-32.0); CREATININE 1.54 mg/dL (0.70-1.30); Calcium 8.9 mg/dL (8.5-10.1); Chloride 107 mmol/L (98-107); Glucose 112 mg/dL (74-106); NT-proBNP 632 pg/mL (<300); Sodium 145 mmol/L (136-145); TSH (W/Ref FT4) 2.16 uIU/mL (0.36-3.74); Total Protein 6.7 g/dL (6.4-8.2); Troponin I < 0.05 ng/Ml (<0.06)
--- NOTE | 2019-11-29 04:21 | NUR.NOTE ---
Pt more alert after 1L NS. aware he is at [facility]. States he will try to give urine spec. to CT via stretcher.
[2019-11-29 04:30] LABS: Ammonia 11 umol/L (11-32)
--- NOTE | 2019-11-29 04:37 | DI.VRAD_ITS ---
PROCEDURE INFORMATION: Exam: CT Head Without Contrast Exam date and time: 11/29/2019 2:43 AM Age: 74 years old Clinical indication: Altered mental status/memory loss; Confusion or disorientation; Patient HX: Altered, HX of bleeds TECHNIQUE: Imaging protocol: Computed tomography of the head without contrast. Radiation optimization: All CT scans at this facility use at least one of these dose optimization techniques: automated exposure control; mA and/or kV adjustment per patient size (includes targeted exams where dose is matched to clinical indication); or iterative reconstruction. COMPARISON: CT HEAD CERVICAL SPINE WO 06/05/2019 11:59 AM FINDINGS: Brain: Mild volume loss. No hemorrhage. Mild white matter disease. No mass effect. Ventricles: Normal. No ventriculomegaly. Bones/joints: Unremarkable. No acute fracture. Sinuses: Mild polypoid mucosal thickening. No fluid levels. Mastoid air cells: Visualized mastoid air cells are well aerated. Soft tissues: Unremarkable. IMPRESSION: No acute intracranial abnormality. Dictated and Authenticated by: Michael Ma MD. Ordering:LATONYA Wyman MD
[2019-11-29] MEDS: cefTRIAXone 1 GM/50 ML BAG IVPB (04:43)
[2019-11-29 04:49] VITALS: BP 170/80; PULSE 64; RESP 16; O2SAT 98
[2019-11-29 05:07] LABS: Bilirubin Small (Negative); Blood Large (Negative); Clarity Sl Cloudy (Clear); Glucose Negative (Negative); Ketones 40 mg/dL (Negative); Leukocyte Esterase Small (Negative); Nitrite Negative (Negative); Specific Gravity >= 1.030 (1.005-1.025); pH 5.5 (5-8)
--- NOTE | 2019-11-29 05:08 | NUR.NOTE ---
Call from the [facility], staff updated on pt.
[2019-11-29 05:43] LABS: Bacteria Moderate HPF (Negative); RBC >50 HPF (0-2); WBC >50 HPF (0-5)
[2019-11-29 05:44] LABS: C & S Indicated? Yes
[2019-11-29 06:02] LABS: Lactate 0.8 mmol/L (0.6-1.4)
[2019-11-29 06:24] VITALS: BP 161/85; PULSE 62; RESP 15; TEMP 36.7; O2SAT 98
[2019-11-29 08:49] VITALS: BP 161/85; PULSE 62; RESP 15; TEMP 36.7; O2SAT 98
== END 2019-11-29 08:50 | disposition designated cancer center or children's hospital (05) ==
PROVIDERS: Emergency Provider Student in an Organized Health Care Education/Training Program; PCP Family Medicine
DX: N39.0 Urinary tract infection, site not specified (principal); B96.4 Proteus (mirabilis) (morganii) as the cause of diseases classified elsewhere; E86.0 Dehydration; G20 Parkinson's disease; Z86.79 Personal history of other diseases of the circulatory system
CPT/HCPCS: 36415; 80053; 82805; 87040; 87077; 93005; 96361; 96365; 99285; 70450; 71045; 81003; 81015; 82140; 83605; 83880; 84443; 84484; 85025; 85610; 85730; 87086; 87186; 93010; J0696

== ENCOUNTER 2020-01-22 17:47 | Emergency (ER) | payer MEDICARE, MEDICAID, SELFPAY ==
[2020-01-22] VITALS (12 sets, daily range): BP systolic 120–139; BP diastolic 69–82; PULSE 67–76; RESP 0–25; TEMP 36.6–37.1; O2SAT 95–98
--- NOTE | 2020-01-22 17:45 | DI.RAD_ITS ---
EXAM: XR CHEST 2V PA LATERAL CLINICAL HISTORY: cough, freq falls TECHNIQUE: COMPARISON: XR PORTABLE CHEST AP from 11/29/2019 FINDINGS: The heart is not enlarged. Lungs appear grossly clear with some changes of scarring. No pleural eff usion or pneumothorax. IMPRESSION: No evidence of acute intrapulmonary process.
--- NOTE | 2020-01-22 17:45 | DI.CT_ITS ---
EXAM: CT HEAD WO CLINICAL HISTORY: fall, dementia, prev SDH TECHNIQUE: COMPARISON: CT HEAD WO from 11/29/2019 FINDINGS: Noncontrast cranial CT was performed. Note is again made of previously described marked cerebral atr ophy. No evidence of acute intracranial hemorrhage, mass effect, or midline shift. Note is again ma de of nonspecific chronic sinusitis, involving all the paranasal sinuses. Mastoid air cells grossly clear. Orbital and temporal bone structures appear intact. IMPRESSION: No evidence of acute intracranial process.
--- NOTE | 2020-01-22 17:51 | W.ED.GENAD ---
Discharge Plan Disposition Patient Disposition: HOME Condition: Stable Discharge Details Chief Complaint: GenMedical Clinical Impression: Sinusitis Primary Care Provider: Sally Hopkins ED Provider: Gael Armstrong Home Meds and New Rx's Prescriptions: New doxycycline hyclate 100 mg capsule 100 mg PO BID 10 Days Qty: 20 RF: 0 Continued carbidopa-levodopa 25-100 mg tablet 2 tab PO .4XDAY RF: 0 carbidopa-levodopa 50-200 mg tablet extended release 1 tab PO QID RF: 0 sertraline 50 mg tablet 100 mg PO DAILY RF: 0 amantadine HCl 100 mg capsule 100 mg PO BID Qty: 60 RF: 0 multivitamin [Daily Multiple] 1 EACH tablet 1 ea PO DAILY RF: 0 polyvinyl alcohol [Artificial Tears (polyvin alc)] 15 ML drops 1 drp OU DAILY RF: 0 glycopyrrolate 1 mg Tablet 1 mg PO BID-TID PRNRF: 0 albuterol sulfate 0.63 mg/3 mL Solution For Nebulization 0.63 mg INHALATION Q4H PRNRF: 0 sennosides-docusate sodium [Senexon-S] 8.6-50 mg Tablet 1 tab PO DAILY RF: 0 prochlorperazine 25 mg Suppository 25 mg [place] BID PRNRF: 0 B-complex with vitamin C [Super B Complex-Vitamin C] Tablet 1 tab PO DAILY RF: 0 rivastigmine 9.5 mg/24 hr Patch 24 Hour 9.5 mg TRANSDERMAL DAILY RF: 0 ondansetron 4 mg Tablet,Disintegrating 4 mg PO Q8H PRNRF: 0 acetaminophen 325 mg Capsule 650 mg PO Q4H PRN PRNRF: 0 Nuplazid 34 mg Capsule 34 mg PO DAILY RF: 0 Discharge Instructions Instructions: Sinusitis (ED) Additional Instructions: You underwent laboratory testing, CT scan of the head, chest x-ray. You do have evidence of a developing sinusitis. I discussed your findings today with Dr. Tee. You were given a dose of doxycycline in the ER and this will be continued at the [facility]. I have included today's laboratory results for your records. See below Laboratory Results - last 24 hr 01/22/20 01/22/20 17:55 17:55 WBC 7.52 RBC 4.64 Hgb 14.4 Hct 41.1 MCV 88.6 MCH 31.0 MCHC 35.0 RDW 12.6 Plt Count 224 MPV 9.9 Immature Gran % 0.5 Neutrophils % 76.8 Lymphocytes % 13.0 Monocytes % 8.8 Eosinophils % 0.8 Basophils % 0.1 Absolute Neutrophils 5.77 Absolute Lymphocytes 0.98 L Absolute Monocytes 0.66 Absolute Eosinophils 0.06 Absolute Basophils 0.01 Sodium 143 Potassium 4.0 Chloride 105 Carbon Dioxide 29.4 Anion Gap 8.6 BUN 21 H Creatinine 1.29 Estimated GFR/1.73 m2 54.60 Glucose 105 Calcium 8.6 Total Bilirubin 0.8 AST 20 ALT 23 Alkaline Phosphatase 88 Total Protein 6.7 Albumin 3.4 Medical Decision Making 74-year-old male lives at local detention facility where he is comfort measures and has note of do not transport. He had 2 falls today with known gait ataxia and instability per his records. There was concern for underlying illness and facility requested transport for evaluation. He arrives in no acute distress. There is note of recent cough. As per request of sending facility, screening laboratories, chest x-ray, CT scan of the head obtained. Patient's paperwork clearly states that he is DNR, DNI I will order this for his record. Laboratories today reveal a white blood cell count of 7.5, hematocrit 41, platelets 224. Sodium 143, potassium 4.0, chloride 105, bicarb 29, BUN 21, creatinine 1.2 CT scan of the head does not show acute intracranial findings but does note that sinus disease is increased when compared with prior exam. There is mucoperiosteal thickening within the sphenoid, ethmoid and frontal sinuses. Chest x-ray without acute findings. I did discuss the case with adan Mayes for the [facility] this evening. We will treat with doxycycline which was initiated in the ER. Lab Data Lab results reviewed: Yes I reviewed the patient's lab results. Labs: Laboratory Results - last 24 hr 01/22/20 01/22/20 17:55 17:55 WBC 7.52 RBC 4.64 Hgb 14.4 Hct 41.1 MCV 88.6 MCH 31.0 MCHC 35.0 RDW 12.6 Plt Count 224 MPV 9.9 Immature Gran % 0.5 Neutrophils % 76.8 Lymphocytes % 13.0 Monocytes % 8.8 Eosinophils % 0.8 Basophils % 0.1 Absolute Neutrophils 5.77 Absolute Lymphocytes 0.98 L Absolute Monocytes 0.66 Absolute Eosinophils 0.06 Absolute Basophils 0.01 Sodium 143 Potassium 4.0 Chloride 105 Carbon Dioxide 29.4 Anion Gap 8.6 BUN 21 H Creatinine 1.29 Estimated GFR/1.73 m2 54.60 Glucose 105 Calcium 8.6 Total Bilirubin 0.8 AST 20 ALT 23 Alkaline Phosphatase 88 Total Protein 6.7 Albumin 3.4 HPI General Mode of arrival: EMS. Date/Time Provider Initiated Documentation: 01/22/20 18:08. Limitations to Documentation: other (Advanced dementia). Information obtained by: EMS and RN notes reviewed. History of Present Illness 74 year old M presents to the emergency department with the chief complaint of 2 falls today, history of same, records note do not transport. Cough noted, Patient did receive the following treatments prior to arrival, none Related Data Home Medications Medication Instructions Recorded Confirmed multivitamin [Daily Multiple] 1 ea PO DAILY 08/08/15 01/22/20 polyvinyl alcohol [Artificial 1 drp OU DAILY 04/20/17 01/22/20 Tears (polyvin alc)] amantadine HCl 100 mg capsule 100 mg PO BID #60 cap 08/06/18 01/22/20 sertraline 50 mg tablet 100 mg PO DAILY tab 08/06/18 01/22/20 carbidopa 25 mg-levodopa 100 mg 2 tab PO .4XDAY tab 09/09/18 01/22/20 tablet carbidopa ER 50 mg-levodopa 200 mg 1 tab PO QID tab 09/09/18 01/22/20 tablet,extended release B-complex with vitamin C [Super B 1 tab PO DAILY 11/29/19 01/22/20 Complex-Vitamin C] albuterol sulfate 0.63 mg INHALATION Q4H PRN 11/29/19 01/22/20 glycopyrrolate 1 mg PO BID-TID PRN 11/29/19 01/22/20 prochlorperazine 25 mg KS BID PRN 11/29/19 01/22/20 rivastigmine 9.5 mg TRANSDERMAL DAILY 11/29/19 01/22/20 sennosides-docusate sodium 1 tab PO DAILY 11/29/19 01/22/20 [Senexon-S] Nuplazid 34 mg PO DAILY 01/22/20 01/22/20 acetaminophen 650 mg PO Q4H PRN PRN 01/22/20 01/22/20 doxycycline hyclate 100 mg PO BID 10 Days #20 cap 01/22/20 ondansetron 4 mg PO Q8H PRN 01/22/20 01/22/20 Previous Rx's Medication Instructions Recorded amantadine HCl 100 mg capsule 100 mg PO BID #60 cap 08/06/18 doxycycline hyclate 100 mg PO BID 10 Days #20 cap 01/22/20 Allergies Allergy/AdvReac Type Severity Reaction Status Date / Time Penicillins Allergy Mild can't Unverified 01/22/20 17:52 remember Sulfa (Sulfonamide Allergy Unverified 01/22/20 17:52 Antibiotics) General Stated Complaint: GenMedical MARIBELL: 3 Review of Systems Unobtainable due to mental condition [facility] Medical History Anxiety (Chronic) Arthritis (Chronic) Colitis (Chronic) Depression (Chronic) Falls frequently (Chronic 06/10/15) Parkinsons disease (Chronic 06/10/15) a. diagnosed in 1998 b. followed by Nohemi Dumont MD Subdural hemorrhage (Acute) Surgical History History of Surgical Procedure (Chronic) A. Toe surgery. 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 He resides at the [facility]. Friend Rosa is a his DPOA and senior director finance. No smoking, ETOH, or illicit drug use. Exam Narrative Exam Narrative: GEN: Pleasant, well groomed, interactive. HEAD: Normocephalic, atraumatic ENT: Mucous membranes moist, oropharynx unremarkable, External ear exam unremarkable EYES: PERRL, EOMI NECK: Full ROM, no DELMAR, no menigismus CHEST/RESP: Nontender, cough noted CARDIOVASCULAR: RRR, no murmur, rub juanita. 2+ Rad pulse bilateral ABDOMEN: Soft, nontender, no mass. +Bowel sounds EXT: Full ROM, no edema, no rash Neuro: Grossly normal neurologic exam Course Vital Signs Vital signs: Vital Signs Temperature 36.6 C 01/22/20 17:41 Pulse 74 01/22/20 17:41 Respiratory Rate 20 01/22/20 17:41 Blood Pressure 137/81 01/22/20 17:41 Pulse Oximetry 97 01/22/20 17:41 Temperature 36.6 C 01/22/20 17:41 Temperature Source Temporal Artery Scan 01/22/20 17:41 Pulse 74 01/22/20 17:41 Respiratory Rate 20 01/22/20 17:41 Blood Pressure 137/81 01/22/20 17:41 Blood Pressure Position Supine 01/22/20 17:41 Pulse Oximetry 97 01/22/20 17:41 Oxygen Delivery Method Room Air 01/22/20 17:41 Oxygen Flow Rate 0 01/22/20 17:41
--- NOTE | 2020-01-22 18:00 | NUR.NOTE ---
Nursing Note: BGL 98
[2020-01-22 18:06] LABS: Abs Immature Grans 0.04 k/cumm (0.0-0.09); Absolute Basophil Count 0.01 k/cumm (0.0-0.2); Absolute Eosinophil Count 0.06 k/cumm (0.0-0.7); Absolute Lymphocyte Count 0.98 k/cumm (1.2-3.4); Absolute Monocyte Count 0.66 k/cumm (0.11-0.7); Absolute Neutrophil Count 5.77 k/cumm (1.2-6.7); Basophils % 0.1; Eosinophils % 0.8; HCT 41.1 % (40.0-50.0); HGB 14.4 g/dL (13.5-17.5); Immature Grans % 0.5 %; Mean Corpuscular Volume 88.6 fL (80-95); Mean Platelet Volume 9.9 fL (8.0-11.0); Monocytes % 8.8; Neutrophils % 76.8; Platelet Count 224 x1000/uL (130-400); RBC 4.64 m/cumm (4.50-6.00); RBC Distribution Width 12.6 % (11.8-14.1); White Blood Cell Count 7.52 k/cumm (4.4-10.8)
[2020-01-22 18:17] LABS: ALT 23 U/L (16-63); AST 20 U/L (15-37); Albumin 3.4 g/dL (3.4-5.0); Alkaline Phosphatase 88 U/L (46-116); Anion Gap 8.6 mmol/L (3-11); BUN 21 mg/dL (7-18); Bilirubin, Total 0.8 mg/dL (0.2-1.0); CO2 29.4 mmol/L (21.0-32.0); CREATININE 1.29 mg/dL (0.70-1.30); Calcium 8.6 mg/dL (8.5-10.1); Chloride 105 mmol/L (98-107); Glucose 105 mg/dL (74-106); Sodium 143 mmol/L (136-145); Total Protein 6.7 g/dL (6.4-8.2)
--- NOTE | 2020-01-22 18:50 | DI.VRAD_ITS ---
PROCEDURE INFORMATION: Exam: CT Head Without Contrast Exam date and time: 01/22/2020 5:55 PM Age: 74 years old Clinical indication: Other: Fall, dementia, prev sdh TECHNIQUE: Imaging protocol: Computed tomography of the head without contrast. COMPARISON: CT HEAD WO 11/29/2019 4:14 AM FINDINGS: Brain: Ventricles, sulci are unchanged. There is mild ventricular, cortical sulcal prominence consistent with central, cortical atrophy in the patient's age.. There is no evidence of acute hemorrhage, mass or shift. There is no evidence of an acute cortical or major vascular territory infarct. No abnormal extra-axial collections are identified. Ventricles: No significant ventricular enlargement/hydrocephalus. Bones/joints: There is no acute bony abnormality Sinuses: There is sinus mucoperiosteal thickening involving both maxillary antra greater on the left than the right. There is some mucoperiosteal thickening within the sphenoid sinus, ethmoid air cells and frontal sinuses. Sinus disease has increased in prominence when compared with the patient's prior exam Mastoid air cells: No significant mastoid opacification Soft tissues: Subcutaneous soft tissues are unremarkable Vasculature: Intracranial vascular calcification is noted. IMPRESSION: 1. No acute intracranial findings. 2. Sinus disease has increased when compared with the patient's prior exam. Dictated and Authenticated by: Brianna Merida MD. Ordering:AZIZA Mayo MD
--- NOTE | 2020-01-22 19:08 | DI.VRAD_ITS ---
PROCEDURE INFORMATION: Exam: XR Chest, 2 Views Exam date and time: 01/22/2020 6:16 PM Age: 74 years old Clinical indication: Other: Cough, frequent falls TECHNIQUE: Imaging protocol: XR of the chest Views: 2 views. COMPARISON: No relevant prior studies available. FINDINGS: Lungs: Unremarkable. No consolidation. Pleural space: Unremarkable. No pleural effusion. No pneumothorax. Heart/Mediastinum: Unremarkable. No cardiomegaly. Bones/joints: Unremarkable. IMPRESSION: No acute findings. Dictated and Authenticated by: Antoine Braxton MD. Ordering:AZIZA Mayo MD
[2020-01-22] MEDS: Doxycycline Hyclate 100 MG CAP PO (19:25)
== END 2020-01-22 19:40 | disposition home or self-care (01) ==
PROVIDERS: Emergency Provider Emergency Medicine; PCP Family Medicine
DX: S09.90XA Unspecified injury of head, initial encounter (principal); W19.XXXA Unspecified fall, initial encounter; J01.80 Other acute sinusitis; R26.0 Ataxic gait; G31.83 Neurocognitive disorder with Lewy bodies; R29.6 Repeated falls
CPT/HCPCS: 36415; 80053; 99284; 70450; 71046; 85025; 99285

== ENCOUNTER 2020-02-08 14:56 | Outpatient (CLI) | payer MEDICARE, MEDICAID, SELFPAY ==
[2020-02-09 07:44] LABS: Influenza A RNA Result Negative (Negative); Influenza B RNA Result Negative (Negative); RSV RNA Result Negative (Negative)
== END 2020-02-08 15:16 ==
PROVIDERS: PCP Family Medicine; Visit Provider Family Medicine
DX: R50.9 Fever, unspecified (principal)
CPT/HCPCS: 87449; 87631

== ENCOUNTER 2020-06-12 17:26 | Outpatient (REF) | payer MEDICARE, MEDICAID, SELFPAY ==
[2020-06-12 19:14] LABS: Abs Immature Grans 0.01 k/cumm (0.0-0.09); Absolute Basophil Count 0.01 k/cumm (0.0-0.2); Absolute Eosinophil Count 0.08 k/cumm (0.0-0.7); Absolute Lymphocyte Count 0.83 k/cumm (1.2-3.4); Absolute Monocyte Count 0.49 k/cumm (0.11-0.7); Basophils % 0.2; Eosinophils % 1.7; HCT 36.3 % (40.0-50.0); Immature Grans % 0.2 %; Lymphocytes % 17.6; Mean Corp. HGB Concentration 33.1 g/dL (32.0-36.0); Mean Corpuscular Hemoglobin 30.5 pg (27.0-33.0); Mean Corpuscular Volume 92.4 fL (80-95); Mean Platelet Volume 11.6 fL (8.0-11.0); Monocytes % 10.4; Neutrophils % 69.9; Platelet Count 173 x1000/uL (130-400); RBC 3.93 m/cumm (4.50-6.00); RBC Distribution Width 14.7 % (11.8-14.1); White Blood Cell Count 4.72 k/cumm (4.4-10.8)
[2020-06-12 19:37] LABS: ALT 7 U/L (16-63); AST 13 U/L (15-37); Albumin 3.5 g/dL (3.4-5.0); Alkaline Phosphatase 68 U/L (46-116); Anion Gap 8.6 mmol/L (3-11); BUN 17 mg/dL (7-18); Bilirubin, Total 0.6 mg/dL (0.2-1.0); CO2 27.4 mmol/L (21.0-32.0); CREATININE 0.85 mg/dL (0.70-1.30); Calcium 8.6 mg/dL (8.5-10.1); Chloride 106 mmol/L (98-107); Glucose 108 mg/dL (74-106); Potassium 4.1 mmol/L (3.5-5.1); Sodium 142 mmol/L (136-145); Total Protein 5.9 g/dL (6.4-8.2)
== END 2020-06-12 17:46 ==
LOC: LBN 17:26
PROVIDERS: PCP Family Medicine; Visit Provider Family Medicine
DX: F03.90 Unspecified dementia, unspecified severity, without behavioral disturbance, psychotic disturbance, mood disturbance, and anxiety (principal); G20 Parkinson's disease; R68.89 Other general symptoms and signs
CPT/HCPCS: 80053; 85025

== ENCOUNTER → 2020-07-04 09:47 | Outpatient (BNVA) | payer MEDICARE, MEDICAID, SELFPAY | PROVIDERS: PCP Family Medicine; Referring Provider Family Medicine; Visit Provider Psychiatry & Neurology Neurology | DX: G20 Parkinson's disease (principal); F02.80 Dementia in other diseases classified elsewhere, unspecified severity, without behavioral disturbance, psychotic disturbance, mood disturbance, and anxiety | CPT/HCPCS: 99214 ==

== ENCOUNTER 2020-07-14 19:16 | Outpatient (REF) | payer MEDICARE, MEDICAID, SELFPAY ==
[2020-07-14 19:55] LABS: Bilirubin Negative (Negative); Blood Large (Negative); Clarity Cloudy (Clear); Glucose Negative (Negative); Ketones Trace mg/dL (Negative); Leukocyte Esterase Moderate (Negative); Nitrite Positive (Negative); Specific Gravity 1.025 (1.005-1.025); pH 6.5 (5-8)
[2020-07-14 20:24] LABS: RBC >50 HPF (0-2)
[2020-07-14 20:26] LABS: Bacteria Packed HPF (Negative); C & S Indicated? C&S Done As Ordered; WBC >50 HPF (0-5)
== END 2020-07-14 19:36 ==
LOC: NCHCN 19:16
PROVIDERS: PCP Family Medicine; Visit Provider Family Medicine
DX: R32 Unspecified urinary incontinence (principal); R33.9 Retention of urine, unspecified; N39.0 Urinary tract infection, site not specified
CPT/HCPCS: 87077; 81003; 81015; 87086; 87186

== ENCOUNTER 2020-08-20 07:20 | Outpatient (REF) | payer MEDICARE, MEDICAID, SELFPAY ==
[2020-08-20 11:06] LABS: Bilirubin Negative (Negative); Blood Trace-intact (Negative); Clarity Sl Cloudy (Clear); Glucose Negative (Negative); Ketones Trace mg/dL (Negative); Leukocyte Esterase Large (Negative); Nitrite Positive (Negative); Urobilinogen 0.2 EU/dL (Up TO 0.2)
[2020-08-20 11:24] LABS: Bacteria Many HPF (Negative); C & S Indicated? Yes; Casts Negative LPF (Negative); Crystals Negative HPF (Negative); Epithelial Cells Negative HPF (Negative); Mucus Negative (Negative); RBC 20-50 HPF (0-2); WBC >50 HPF (0-5)
== END 2020-08-20 07:40 ==
LOC: LBN 07:20
PROVIDERS: PCP Family Medicine; Visit Provider Nurse Practitioner Gerontology
DX: G20 Parkinson's disease (principal); R82.998 Other abnormal findings in urine
CPT/HCPCS: 87077; 81003; 81015; 87086; 87186

== ENCOUNTER 2020-08-21 18:56 | Outpatient (REF) | payer MEDICARE, MEDICAID, SELFPAY ==
[2020-08-21 13:46] LABS: Abs Immature Grans 0.03 10^3/uL (0.0-0.06); Absolute Basophil Count 0.02 10^3/uL (0.0-0.2); Absolute Eosinophil Count 0.05 10^3/uL (0.0-0.7); Absolute Lymphocyte Count 1.17 10^3/uL (1.2-3.4); Absolute Monocyte Count 0.44 10^3/uL (0.1-0.8); Absolute Neutrophil Count 5.29 10^3/uL (1.2-6.7); Basophils % 0.3; Eosinophils % 0.7; HCT 39.5 % (40.0-50.0); HGB 13.3 g/dL (13.5-17.5); Immature Grans % 0.4; Lymphocytes % 16.7; MCH 30.4 pg (27.0-33.0); MCHC 33.7 % (32.0-36.0); MCV 90.4 fL (80-95); MPV 11.7 fL (8.0-11.0); Monocytes % 6.3; Neutrophils % 75.6; Nucleated RBC 0 %; Platelet Count 228 10^3/uL (130-400); RBC 4.37 10^6/uL (4.36-5.78); RDW 13.6 % (11.8-14.1); RDW-SD 45.4 fL
[2020-08-21 14:15] LABS: Anion Gap 8.2 mmol/L (3-11); BUN 17 mg/dL (7-18); CO2 27.8 mmol/L (21.0-32.0); CREATININE 1.17 mg/dL (0.70-1.30); Calcium 8.8 mg/dL (8.5-10.1); Chloride 106 mmol/L (98-107); Glucose 218 mg/dL (74-106); Potassium 3.7 mmol/L (3.5-5.1); Sodium 142 mmol/L (136-145)
== END 2020-08-21 19:16 ==
LOC: LBN 18:56
PROVIDERS: PCP Family Medicine; Visit Provider Family Medicine
DX: R53.83 Other fatigue (principal); R68.89 Other general symptoms and signs
CPT/HCPCS: 80048; 85025

== ENCOUNTER → 2020-09-05 11:18 | Outpatient (BNVA) | payer MEDICARE, MEDICAID, SELFPAY | PROVIDERS: PCP Family Medicine; Referring Provider Family Medicine; Visit Provider Psychiatry & Neurology Neurology | DX: G20 Parkinson's disease (principal); F02.80 Dementia in other diseases classified elsewhere, unspecified severity, without behavioral disturbance, psychotic disturbance, mood disturbance, and anxiety; R29.6 Repeated falls | CPT/HCPCS: 99213 ==

== ENCOUNTER → 2020-12-25 07:35 | Outpatient (BNVA) | payer MEDICARE, MEDICAID, SELFPAY | PROVIDERS: PCP Family Medicine; Referring Provider Family Medicine; Visit Provider Psychiatry & Neurology Neurology | DX: G20 Parkinson's disease (principal); F02.80 Dementia in other diseases classified elsewhere, unspecified severity, without behavioral disturbance, psychotic disturbance, mood disturbance, and anxiety; R29.6 Repeated falls | CPT/HCPCS: 99213 ==

== ENCOUNTER 2021-03-07 19:23 | Outpatient (REF) | payer MEDICARE, MEDICAID, SELFPAY | END 2021-03-07 19:24 | disposition home or self-care (01) | LOC: LBN 19:23 | PROVIDERS: PCP Family Medicine; Visit Provider Family Medicine | DX: R31.9 Hematuria, unspecified (principal) | CPT/HCPCS: 87077; 87086; 87186 ==

== ENCOUNTER 2021-03-19 17:31 | Emergency (ER) | payer MEDICARE, MEDICAID, SELFPAY ==
--- NOTE | 2021-03-19 17:30 | DI.RAD_ITS ---
EXAM: XR PELVIS AP CLINICAL HISTORY: pain s/p fall TECHNIQUE: COMPARISON: CR XR hip pelvis adult Bl from 02/15/2019 CR,XR XR FEMUR RT from 03/19/2021 FINDINGS: Two views of the pelvis and four views of the femur were obtained. There are mild degenerative diaz es of both hips and degenerative changes of the joints of the knee. There is no evidence of acute fr acture or dislocation. IMPRESSION: RADIATION DOSE DELIVERED: Total DLP
--- NOTE | 2021-03-19 17:30 | DI.RAD_ITS ---
EXAM: XR TIB/FIB RT CLINICAL HISTORY: pain s/p fall TECHNIQUE: COMPARISON: CR,XR XR FEMUR RT from 03/19/2021 FINDINGS: Four views were obtained. There are mild degenerative changes of the joints of the knee. There is n o evidence of an acute fracture or dislocation. IMPRESSION: RADIATION DOSE DELIVERED: Total DLP
[2021-03-19 17:38] VITALS: BP 111/62; PULSE 54; RESP 18; TEMP 36.6; O2SAT 99
--- NOTE | 2021-03-19 17:46 | ED.GENADUL_ITS ---
Discharge Plan Disposition Patient Disposition: LEVEL III [facility] Condition: Stable Discharge Details Clinical Impression: Dementia in Parkinson's disease, Contusion of leg, right Primary Care Provider: Sally Hopkins ED Provider: Sincere Fitzpatrick [place] Meds and New Rx's Prescriptions: Continued acetaminophen 650 mg suppository 650 mg [place] Q4H PRNRF: 0 acetaminophen 325 mg Capsule 650 mg PO Q4H PRN PRNRF: 0 No Action carbidopa-levodopa 25-100 mg tablet 2 tab PO .4XDAY RF: 0 carbidopa-levodopa 50-200 mg tablet extended release 1 tab PO QID RF: 0 bisacodyl 10 mg suppository 10 mg [place] BID PRNRF: 0 diphenoxylate-atropine 2.5-0.025 mg tablet 2 tab PO QID PRNRF: 0 polyethylene glycol 3350 17 gram powder in packet 17 g PO DAILY RF: 0 methylphenidate HCl 5 mg tablet 2.5 mg PO BID RF: 0 Neupro 1 mg/24 hour patch 24 hour 3 mg transdermal DAILY RF: 0 sennosides-docusate sodium [Senexon-S] 8.6-50 mg tablet 1 tab-cap PO QHS RF: 0 amantadine HCl 100 mg capsule 100 mg PO BID Qty: 60 RF: 0 sertraline 50 mg tablet 75 mg PO DAILY RF: 0 multivitamin [Daily Multiple] 1 EACH tablet 1 ea PO DAILY RF: 0 polyvinyl alcohol [Artificial Tears (polyvin alc)] 15 ML drops 1 drp OU DAILY RF: 0 glycopyrrolate 1 mg Tablet 1 mg PO BID-TID PRNRF: 0 albuterol sulfate 0.63 mg/3 mL Solution For Nebulization 0.63 mg INHALATION Q4H PRNRF: 0 prochlorperazine 25 mg Suppository 25 mg ME BID PRNRF: 0 B-complex with vitamin C [Super B Complex-Vitamin C] Tablet 1 tab PO DAILY RF: 0 rivastigmine 9.5 mg/24 hr Patch 24 Hour 9.5 mg TRANSDERMAL DAILY RF: 0 ondansetron 4 mg Tablet,Disintegrating 4 mg PO Q8H PRNRF: 0 Nuplazid 34 mg Capsule 34 mg PO DAILY RF: 0 Discharge Instructions Instructions: Contusion in Adults (ED) Additional Instructions: your xrays did not show any broken bones Medical Decision Making 75 yo male with hx of dementia, parkinson's who is [employer] per notes sent from the [facility] was sent in after he had an unwitinessed fall and was complaining of right leg pain. They called his guardian who requested transfer for xrays. HE arrives and is able to stand and pivot bearing weight on his leg with ems. On exam is sleeping and will awaken to painful stimuli, doesn't grimace or show signs of pain when I palpate the entire leg or range it and has no visible deformities. N o abdominal tenderness or back tenderness or chest tenderness on exam. Suspect he had a contusion causing pain earlier but will xray to evaluate for fracture imaging unremarkable and can still bear weight and has full range of motion of the leg, will d/c back to the [facility]. Differential Diagnosis Differential Diagnosis: contusion, sprain, strain Imaging Data Radiologic Study: Attestation: I personally reviewed and interpreted this imaging study as follows: Imaging: X-Ray Radiologist's impression: no acute findings femur xray Radiologic Study #2: Attestation: I personally reviewed and interpreted this imaging study as follows: Imaging: X-Ray Radiologist's impression: no acute findings tib/fib xray Radiologic Study #3: Attestation: I personally reviewed and interpreted this imaging study as follows: Imaging: X-Ray Radiologist's impression: no acute findings pelvis xray HPI General Mode of arrival: EMS . Date/Time Provider Initiated Documentation: 03/19/21 17:36 . Limitations to Documentation: altered mental status (dementia) . Information obtained by: EMS . History of Present Illness 75 year old M presents to the emergency department with the chief complaint of had right leg pain earlier, described as mild, and it has been now resolved. No relieving factors improve symptom(s), No exacerbating factors reported . Patient did receive the following treatments prior to arrival, none Related Data Home Medications Medication Instructions Recorded Confirmed multivitamin [Daily Multiple] 1 ea PO DAILY 08/08/15 09/05/20 polyvinyl alcohol [Artificial 1 drp OU DAILY 04/20/17 09/05/20 Tears (polyvin alc)] amantadine HCl 100 mg capsule 100 mg PO BID #60 cap 08/06/18 09/05/20 carbidopa 25 mg-levodopa 100 mg 2 tab PO .4XDAY tab 09/09/18 03/19/21 tablet carbidopa ER 50 mg-levodopa 200 mg 1 tab PO QID tab 09/09/18 03/19/21 tablet,extended release B-complex with vitamin C [Super B 1 tab PO DAILY 11/29/19 09/05/20 Complex-Vitamin C] albuterol sulfate 0.63 mg INHALATION Q4H PRN 11/29/19 09/05/20 glycopyrrolate 1 mg PO BID-TID PRN 11/29/19 03/19/21 prochlorperazine 25 mg ME BID PRN 11/29/19 09/05/20 rivastigmine 9.5 mg TRANSDERMAL DAILY 11/29/19 03/19/21 Nuplazid 34 mg PO DAILY 01/22/20 09/05/20 acetaminophen 650 mg PO Q4H PRN PRN 01/22/20 09/05/20 ondansetron 4 mg PO Q8H PRN 01/22/20 03/19/21 sertraline 50 mg tablet 75 mg PO DAILY tab 07/04/20 03/19/21 acetaminophen 650 mg rectal 650 mg ME Q4H PRN 09/05/20 09/05/20 suppository bisacodyl 10 mg rectal suppository 10 mg ME BID PRN ea 09/05/20 03/19/21 diphenoxylate-atropine 2.5 2 tab PO QID PRN tab 09/05/20 03/19/21 mg-0.025 mg tablet methylphenidate HCl 5 mg tablet 2.5 mg PO BID tab 09/05/20 09/05/20 polyethylene glycol 3350 17 gram 17 g PO DAILY 09/05/20 03/19/21 oral powder packet rotigotine 1 mg/24 hour 3 mg TRANSDERMAL DAILY 09/05/20 03/19/21 transdermal 24 hour patch sennosides 8.6 mg-docusate sodium 1 tab-cap PO QHS 09/05/20 09/05/20 50 mg tablet Previous Rx's Medication Instructions Recorded amantadine HCl 100 mg capsule 100 mg PO BID #60 cap 08/06/18 Allergies Allergy/AdvReac Type Severity Reaction Status Date / Time Penicillins Allergy Mild can't Unverified 03/19/21 17:41 remember Sulfa (Sulfonamide Allergy Unverified 03/19/21 17:41 Antibiotics) General Stated Complaint: Orthopedic MARIBELL: 4 Review of Systems Unobtainable due to mental status (dementia) [facility] Medical History (Updated 03/19/21 @ 17:52 by Sincere Fitzpatrick MD) Anxiety Arthritis Colitis Depression Falls frequently (06/10/15) Parkinsons disease (06/10/15) a. diagnosed in 1998 b. followed by Nohemi Dumont MD Subdural hemorrhage Surgical History History of Surgical Procedure A. Toe surgery. 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 He resides at the [facility]. Friend Rosa is a his DPOA and finance associate. No smoking, ETOH, or illicit drug use. Exam Const General: other (sleeping, awakens to painful stimuli) Orientation: confused (at baseline is not oriented per report) [facility] Head: normal to inspection Ears: external ears normal General nose exam: external nose normal Mouth: moist mucous membranes Eyes General: appearance normal, both eyes and all related structures Neck Neck: normal visual inspection Resp Effort & Inspection: normal respiratory effort Cardio Rate: regular rate Skin General skin exam: no rashes or lesions noted Neuro General: patient confused Extrem General: normal to inspection Course Vital Signs Vital signs: Vital Signs Temperature 36.6 C 03/19/21 17:38 Pulse 54 L 03/19/21 17:38 Respiratory Rate 18 03/19/21 17:38 Blood Pressure 111/62 03/19/21 17:38 Pulse Oximetry 99 03/19/21 17:38 Temperature 36.6 C 03/19/21 17:38 Pulse 54 L 03/19/21 17:38 Respiratory Rate 18 03/19/21 17:38 Respiratory Effort Non-Labored 03/19/21 17:41 Blood Pressure 111/62 03/19/21 17:38 Blood Pressure Position Sitting 03/19/21 17:38 Pulse Oximetry 99 03/19/21 17:38 Oxygen Delivery Method Room Air 03/19/21 17:38 Oxygen Flow Rate 0 03/19/21 17:38
--- NOTE | 2021-03-19 18:26 | DI.VRAD_ITS ---
PROCEDURE INFORMATION: Exam: XR Right Femur Exam date and time: 03/19/2021 6:05 PM Age: 75 years old Clinical indication: Injury or trauma; Blunt trauma; Thigh or upper leg; Right; Patient HX: Pain S/P fall TECHNIQUE: Imaging protocol: XR Right femur. Views: 2 views. COMPARISON: CR RIGHT KNEE 3 VIEWS 06/10/2015 9:49 PM FINDINGS: Bones/joints: Unremarkable. No acute fracture. Soft tissues: Unremarkable. IMPRESSION: No acute findings. Dictated and Authenticated by: Alena Alanis MD. Ordering:BIANCA Post MD
--- NOTE | 2021-03-19 18:27 | DI.VRAD_ITS ---
PROCEDURE INFORMATION: Exam: XR Pelvis Exam date and time: 03/19/2021 6:05 PM Age: 75 years old Clinical indication: Hip pain and pelvic pain; Right hip; Patient HX: Pain S/P fall TECHNIQUE: Imaging protocol: XR pelvis. Views: 1 or 2 view. COMPARISON: CR XR hip pelvis adult Bl 02/15/2019 1:54 PM FINDINGS: Bones/joints: Unremarkable. No acute fracture. Soft tissues: Unremarkable. IMPRESSION: No acute findings. Dictated and Authenticated by: Alena Alanis MD. Ordering:BIANCA Post MD
--- NOTE | 2021-03-19 18:28 | DI.VRAD_ITS ---
PROCEDURE INFORMATION: Exam: XR Right Tibia and Fibula Exam date and time: 03/19/2021 6:04 PM Age: 75 years old Clinical indication: Lower leg; Right; Patient HX: Pain S/P fall TECHNIQUE: Imaging protocol: XR Right tibia and fibula. Views: 2 views. COMPARISON: CR XR FEMUR RT 03/19/2021 5:58 PM FINDINGS: Bones/joints: Normal. Soft tissues: Normal. IMPRESSION: No acute findings. Dictated and Authenticated by: Alena Alanis MD. Ordering:BIANCA Post MD
== END 2021-03-19 18:35 | disposition designated cancer center or children's hospital (05) ==
PROVIDERS: Emergency Provider Emergency Medicine; PCP Family Medicine
DX: S70.11XA Contusion of right thigh, initial encounter (principal); W18.39XA Other fall on same level, initial encounter; G20 Parkinson's disease; F02.80 Dementia in other diseases classified elsewhere, unspecified severity, without behavioral disturbance, psychotic disturbance, mood disturbance, and anxiety
CPT/HCPCS: 73552; 99284; 72170; 73590; 99283

== ENCOUNTER → 2021-04-03 07:26 | Outpatient (BNVA) | payer MEDICARE, MEDICAID, SELFPAY | PROVIDERS: PCP Family Medicine; Referring Provider Family Medicine; Visit Provider Psychiatry & Neurology Neurology | DX: G20 Parkinson's disease (principal); F02.80 Dementia in other diseases classified elsewhere, unspecified severity, without behavioral disturbance, psychotic disturbance, mood disturbance, and anxiety; R29.6 Repeated falls | CPT/HCPCS: 99213 ==

== ENCOUNTER → 2021-09-05 08:29 | Outpatient (BNVA) | payer MEDICARE, MEDICAID, SELFPAY | PROVIDERS: PCP Family Medicine; Referring Provider Family Medicine; Visit Provider Psychiatry & Neurology Neurology | DX: R69 Illness, unspecified (principal) ==